=== PATIENT | female | born 1940 | race Caucasian/White ===

== ENCOUNTER → 2016-09-05 | Outpatient (CLI) | payer MEDICARE, BC ==
[~2016-09-05] MED LIST: ASPI81TA11 PO; BUPR300T PO; CEPH-460 PO; DIOV80TA4 PO; GLUCTAB PO; LORTA5 PO; LOSA100T PO; METF500T PO; MULTTAB24 PO; POLY10O OD; TRAZ100T6 PO; VICT18IN; WELLTAB39 PO
[2016-09-05 12:55] LABS: BACTERIA, URINE RARE /hpf; BLOOD, URINE NEG (NEG); GLUCOSE,URINE NEG (NEG); KETONE, URINE NEG (NEG); NITRITE,URINE NEG (NEG); SQUAMOUS EPITHELIAL CELL URINE <1 /hpf (0-5); URINE COLOR YELLOW (YELLW/STRAW)
[2016-09-05 12:57] LABS: AUTOMATED NEUTROPHIL # 5.2 TH/MM3 (1.8-7.7); BASOPHIL % 0.5 % (0.0-2.0); EOSINOPHIL # 0.2 TH/MM3 (0-0.4); EOSINOPHIL % 3.2 % (0.0-4.0); HEMATOCRIT 35.7 % (35.0-46.0); HEMO FLAGS DIFF FINAL; LYMPH % 19.1 % (9.0-44.0); LYMPHOCYTE # 1.4 TH/MM3 (1.0-4.8); MEAN CELL VOLUME 84.8 FL (80.0-100.0); MEAN CORPUSCULAR HEMOGLOBIN 28.2 PG (27.0-34.0); MEAN CORPUSCULAR HGB CONC 33.2 % (32.0-36.0); MONO % 5.8 % (0.0-8.0); NEUT % 71.4 % (16.0-70.0); PLATELET COUNT 260 TH/MM3 (150-450); RED BLOOD COUNT 4.21 MIL/MM3 (4.00-5.30); RED CELL DISTRIBUTION WIDTH 14.2 % (11.6-17.2); WHITE BLOOD COUNT 7.2 TH/MM3 (4.0-11.0)
[2016-09-05 13:14] LABS: MICRO ALBUMIN RANDOM URINE RAW 21.8 MG/L (0.0-30.0)
[2016-09-05 13:16] LABS: HEMOGLOBIN A1a 1.5 %; HEMOGLOBIN A1b 1.5 %; HEMOGLOBIN Ao 85.6 %; HEMOGLOBIN LA1C 1.9 %; HEMOGLOBIN P3 5.4 %
[2016-09-05 13:37] LABS: ANION GAP 4 MEQ/L (5-15); AST (GOT) 15 U/L (15-37); BICARBONATE 30.3 MEQ/L (21.0-32.0); BLOOD UREA NITROGEN 15 MG/DL (7-18); CHLORIDE 102 MEQ/L (98-107); GLOMERULAR FILTRATION RATE 50 ML/MIN (>89); GLUCOSE,FASTING 83 MG/DL (74-99); POTASSIUM 4.5 MEQ/L (3.5-5.1); SODIUM (NA) 136 MEQ/L (136-145)
[2016-09-05 13:45] LABS: ALKALINE PHOSPHATASE 68 U/L (45-117); ALT (GPT) 14 U/L (10-53); FREE T4 1.08 NG/DL (0.76-1.46); HDL CHOLESTEROL 77.8 MG/DL (40.0-60.0); LDL CHOLESTEROL 91 MG/DL (0-99); TOTAL BILIRUBIN ADULT 0.5 MG/DL (0.2-1.0)
== END ==
LOC: PLAB 10:37
PROVIDERS: ATTEND Internal Medicine
DX: E78.00 Pure hypercholesterolemia, unspecified (principal); E03.9 Hypothyroidism, unspecified; R53.83 Other fatigue; E11.8 Type 2 diabetes mellitus with unspecified complications
CPT/HCPCS: 36415; 80053; 80061; 81001; 82043; 83036; 84439; 84443; 85025

== ENCOUNTER → 2016-11-23 | Outpatient (CLI) | payer MEDICARE, BC ==
[2016-11-23 14:36] LABS: INTERNATIONAL NORMALIZED RATIO 0.9 RATIO; PROTHROMBIN TIME - PATIENT 10.3 SEC (9.8-11.6)
[2016-11-23 16:41] LABS: AUTOMATED NEUTROPHIL # 5.8 TH/MM3 (1.8-7.7); BASOPHIL # 0.1 TH/MM3 (0-0.2); BASOPHIL % 0.8 % (0.0-2.0); EOSINOPHIL # 0.2 TH/MM3 (0-0.4); EOSINOPHIL % 2.3 % (0.0-4.0); HEMATOCRIT 35.5 % (35.0-46.0); HEMO FLAGS DIFF FINAL; LYMPH % 14.2 % (9.0-44.0); LYMPHOCYTE # 1.1 TH/MM3 (1.0-4.8); MEAN CELL VOLUME 84.8 FL (80.0-100.0); MEAN CORPUSCULAR HEMOGLOBIN 28.5 PG (27.0-34.0); MEAN CORPUSCULAR HGB CONC 33.6 % (32.0-36.0); MONO % 8.3 % (0.0-8.0); NEUT % 74.4 % (16.0-70.0); PLATELET COUNT 280 TH/MM3 (150-450); RED BLOOD COUNT 4.19 MIL/MM3 (4.00-5.30); RED CELL DISTRIBUTION WIDTH 14.5 % (11.6-17.2); WHITE BLOOD COUNT 7.8 TH/MM3 (4.0-11.0)
[2016-11-23 16:45] LABS: BICARBONATE 27.6 MEQ/L (21.0-32.0); POTASSIUM 4.4 MEQ/L (3.5-5.1)
== END ==
LOC: PLAB 12:20
PROVIDERS: ATTEND Internal Medicine
DX: Z01.818 Encounter for other preprocedural examination (principal)
CPT/HCPCS: 36415; 80048; 85025; 85610; 85730

== ENCOUNTER 2017-01-22 19:38 | Emergency (ER) | payer MEDICARE, BC ==
[~2017-01-22] VITALS: Ht 157.5 cm; Wt 88.2 kg
[~2017-01-22 19:38] MED LIST changes: -ASPI81TA11 PO; -CEPH-460 PO; -LOSA100T PO; -METF500T PO; -MULTTAB24 PO; -TRAZ100T6 PO; -WELLTAB39 PO
[2017-01-22 19:43] VITALS: BP 147/72; PULSE 89; RESP 20; TEMP 98.3; O2SAT 98
[2017-01-22] MEDS ORDERED: ASPI81TA11 PO (20:05)
[2017-01-22] MEDS ORDERED: METF500T PO (20:05)
[2017-01-22] MEDS ORDERED: WELLTAB39 PO (20:05)
[2017-01-22] MEDS ORDERED: LOSA100T PO (20:05)
[2017-01-22] MEDS ORDERED: TRAZ100T6 PO (20:05)
[2017-01-22] MEDS ORDERED: MULTTAB24 PO (20:05)
--- NOTE | 2017-01-22 20:36 | PD ---
HPI Chief Complaint: Edema Time Seen by Provider: 20:15 Travel History International Travel<30 days: No Contact w/Intl Traveler<30days: No Traveled to known affect area: No History of Present Illness HPI 77 year-old female presents to the emergency room for evaluation of right lower leg swelling that has been worsening over the past 3 days. Patient states she was sitting on her porch 3 days ago when she felt a sharp stinging in her right foot. She cannot localize where the stinging came from but states the following morning she woke up with right lower extremity edema. Since then it has been increasing. Patient reports constant, throbbing discomfort. She has been taking her prescribed Percocet without significant relief in symptoms. She denies paresthesias. Denies trauma or injury. Patient takes aspirin daily. She recently had left shoulder surgery 1 month ago. Patient denies chest pain, shortness of breath, or calf pain. PFSH Past Medical History Hx Anticoagulant Therapy: Yes (asa 81mg) Arthritis: Yes Depression: Yes Cancer: No Cardiovascular Problems: Yes (htn on meds) Coronary Artery Disease: Yes Diabetes: Yes Patient Takes Glucophage: No Diminished Hearing: No Endocrine: Yes Gastrointestinal Disorders: Yes (HX ULCERS) Genitourinary: No Hepatitis: No Hiatal Hernia: No Hypertension: Yes Immune Disorder: No Musculoskeletal: Yes (ARTHRITIS) Neurologic: No Psychiatric: No Reproductive: No Respiratory: No Immunizations Current: Yes Tetanus Vaccination: < 5 Years Influenza Vaccination: Yes ?: Not Menopausal: Yes Past Surgical History Abdominal Surgery: Yes (APPEND; GASTRIC BY-PASS- REVERSAL BY-PASS) Appendectomy: Yes Cholecystectomy: Yes Gynecologic Surgery: Yes (HYSTERECTOMY) Hysterectomy: Yes Joint Replacement: Yes (LI KNEE RT ELBOW LT SHOULDER RT HIP) Oral Surgery: Yes (T&A) Tonsillectomy: Yes Other Surgery: Yes (LIGAMENT REPAIR ON RIGHT LEG) Social History Alcohol Use: No Tobacco Use: No Substance Use: No Allergies-Medications (Allergen,Severity, Reaction): Coded Allergies: Sulfa (Verified Allergy, Severe, Swelling, 01/22/17) EYES SWELL UP Reported Meds & Prescriptions Reported Meds & Active Scripts Active Reported Metformin (Metformin HCl) 500 Mg Tab 500 Mg PO DAILY With a meal Multi For Her (Multiple Vitamins W/ Minerals) 1 Tab Tab 1 Tab PO DAILY Trazodone (Trazodone HCl) 100 Mg Tablet 100 Mg PO HS Aspirin EC (Aspirin) 81 Mg Tabdr 81 Mg PO DAILY Losartan (Losartan Potassium) 100 Mg Tab 100 Mg PO DAILY Wellbutrin Xl 24 HR (Bupropion HCl) 300 Mg Tab 300 Mg PO DAILY Review of Systems Except as stated in HPI: all other systems reviewed are Neg Physical Exam Narrative GENERAL: Well-nourished, well-developed female in no acute distress. Afebrile. Ambulatory. SKIN: Focused skin assessment warm/dry. No erythema or ecchymosis. HEAD: Normocephalic. EYES: No scleral icterus. No injection or drainage. NECK: Supple, trachea midline. No JVD or lymphadenopathy. CARDIOVASCULAR: Regular rate and rhythm without murmurs, gallops, or rubs. RESPIRATORY: Breath sounds equal bilaterally. No accessory muscle use. EXTREMITY: Right lower extremity mildly tender to palpation. 2+ pitting edema on the right. Full range of motion in all joints. 1+ dorsalis pedis pulse in the right leg. Bilateral calves are 42 cm. Mildly increased warmth the right lower extremity. Data Data Last Documented VS Vital Signs Date Time Temp Pulse Resp B/P Pulse Ox O2 Delivery O2 Flow Rate FiO2 01/22/17 19:58 01/22/17 19:43 98.3 89 20 98 Room Air Orders Us Leg Venous Doppler (01/22/17 ) MDM Medical Decision Making Medical Screen Exam Complete: Yes Emergency Medical Condition: Yes Medical Record Reviewed: Yes Differential Diagnosis DVT, insect bite reaction, cellulitis Narrative Course 77 her old female presents to the emergency room for evaluation of right lower extremity edema the past 3 days. Patient thinks she may have gotten bit by a bug prior to onset of symptoms but cannot localize bug bite. There is constant , throbbing discomfort in the right lower extremity. Physical exam reveals right lower extremity is neurovascularly intact with 1+ dorsalis pedis pulse. 2 + pitting edema in the right. Mildly increased warmth. No erythema or ecchymosis. There is no obvious skin wound or insect bite. Given patient's recent major surgery and immobilization of 5 days, there is concern for DVT. Ultrasound shows no evidence of DVT. I spoke to my attending physician, Dr. Brown, who recommends discharging on Keflex with repeat ultrasound in 10 days if symptoms persist. Patient was instructed to follow-up with her primary care physician or return sooner for worsening symptoms. She understands and agrees to plan. Diagnosis Primary Impression: Edema of right lower extremity Referrals: Primary Care Physician Patient Instructions: General Instructions, Leg Edema (ED) Additional Instructions: Rest and drink plenty of fluids. Take Keflex as directed, until gone. Follow up with a primary care physician. Return to emergency room for worsening symptoms, as discussed. Med/Other Pt SpecificInfo: Prescription(s) given Disposition: 01 DISCHARGE HOME Condition: Stable Jolly Morales Jan 22, 2017 20:36
--- NOTE | 2017-01-22 21:09 | RADRPT ---
EXAM DATE/TIME: 01/22/2017 20:50 [facility] COMPARISON: No previous studies available for comparison. INDICATIONS : Right foot and ankle swelling after a bug bite. MEDICAL HISTORY : Hypertension. SURGICAL HISTORY : Cholecystectomy. Left shoulder surgery. Bilateral knee replacement. Right hip surgery. ENCOUNTER: Initial ACUITY: 3 days PAIN SCORE: 6/10 LOCATION: Right leg. TECHNIQUE: Venous ultrasound of the leg was performed from the inguinal ligament to the proximal calf. Real-shantelle e, color Doppler and spectral tracing, compression and augmentation techniques were used. FINDINGS: There is normal compressibility of the deep venous system from the inguinal region to the proximal ca lf. No echogenic clot is seen in the lumen of the common femoral, femoral, popliteal, and posterior tibial veins. There is a normal response of the venous system to proximal and distal augmentation an d respiration. CONCLUSION: No evidence of deep venous thrombosis within the right lower extremity. Chance Whyte MD on January 22, 2017 at 21:07 Board Certified Radiologist. This report was verified electronically.
[2017-01-22] MEDS ORDERED: CEPH-460 PO (21:21)
--- NOTE | 2017-01-22 21:22 | PD ---
Data Data Last Documented VS Vital Signs Date Time Temp Pulse Resp B/P Pulse Ox O2 Delivery O2 Flow Rate FiO2 01/22/17 19:58 01/22/17 19:43 98.3 89 20 98 Room Air Orders Us Leg Venous Doppler (01/22/17 ) MDM Supervised Visit with BARRY: Yes Narrative Course The history, exam, and medical decision-making in the associated midlevel provider note were completed with my assistance. I reviewed and agree with the findings presented. I attest that I had a [id number] encounter with the patient on the same day, and personally performed and documented my assessment and findings in the medical record. *My assessment and Findings: This is a 77-year-old female who presents to the emergency department with right lower extremity swelling. She has pitting edema of the right lower extremity with more in her foot than in her and she has some warmth and erythema of the foot. I suspect she has a local cellulitis or irritant reaction to a bug bite. Ultrasound was negative for DVT. Given the extent of her swelling I did advise her to have a repeat ultrasound performed in 10 days and to follow-up with her primary care physician later this week. She'll be discharged on antibiotics. Diagnosis Primary Impression: Edema of right lower extremity Referrals: Primary Care Physician Patient Instructions: General Instructions, Leg Edema (ED) Additional Instruction: Rest and drink plenty of fluids. Take Keflex as directed, until gone. Follow up with a primary care physician. Return to emergency room for worsening symptoms, as discussed. Disposition: 01 DISCHARGE HOME Condition: Stable Aga Brown MD Jan 22, 2017 21:22
== END 2017-01-22 21:25 | disposition home or self-care (01) ==
LOC: PHEFT 19:38
DX: R60.0 Localized edema (principal); M19.90 Unspecified osteoarthritis, unspecified site; I10 Essential (primary) hypertension; E11.9 Type 2 diabetes mellitus without complications; I25.10 Atherosclerotic heart disease of native coronary artery without angina pectoris; Z79.82 Long term (current) use of aspirin
CPT/HCPCS: 93971

== ENCOUNTER → 2017-02-01 | Outpatient (CLI) | payer MEDICARE, BC ==
[~2017-02-01] MED LIST changes: +ASPI81TA11 PO; -BUPR300T PO; +CEPH-460 PO; -DIOV80TA4 PO; -GLUCTAB PO; -LORTA5 PO; +LOSA100T PO; +METF500T PO; +MULTTAB24 PO; -POLY10O OD; +TRAZ100T6 PO; -VICT18IN; +WELLTAB39 PO
[2017-02-01 13:01] LABS: BASOPHIL # 0.1 TH/MM3 (0-0.2); BASOPHIL % 0.8 % (0.0-2.0); EOSINOPHIL # 0.3 TH/MM3 (0-0.4); HEMATOCRIT 31.2 % (35.0-46.0); HEMO FLAGS DIFF FINAL; LYMPH % 26.7 % (9.0-44.0); LYMPHOCYTE # 1.8 TH/MM3 (1.0-4.8); MEAN CELL VOLUME 81.2 FL (80.0-100.0); MEAN CORPUSCULAR HEMOGLOBIN 25.5 PG (27.0-34.0); MEAN CORPUSCULAR HGB CONC 31.5 % (32.0-36.0); MONO % 8.1 % (0.0-8.0); NEUT % 60.4 % (16.0-70.0); PLATELET COUNT 296 TH/MM3 (150-450); RED BLOOD COUNT 3.85 MIL/MM3 (4.00-5.30); RED CELL DISTRIBUTION WIDTH 15.4 % (11.6-17.2); WHITE BLOOD COUNT 6.6 TH/MM3 (4.0-11.0)
[2017-02-01 13:05] LABS: BACTERIA, URINE RARE /hpf; BLOOD, URINE NEG (NEG); GLUCOSE,URINE NEG (NEG); HYALINE CAST, URINE 1 /lpf (RARE); KETONE, URINE NEG (NEG); MUCUS URINE FEW /lpf (OCC); NITRITE,URINE NEG (NEG); PH, URINE 5.5 (5.0-8.5); SQUAMOUS EPITHELIAL CELL URINE 4 /hpf (0-5); URINE COLOR YELLOW (YELLW/STRAW)
[2017-02-01 13:21] LABS: ALT (GPT) 15 U/L (10-53); ANION GAP 7 MEQ/L (5-15); AST (GOT) 20 U/L (15-37); BICARBONATE 26.6 MEQ/L (21.0-32.0); BLOOD UREA NITROGEN 13 MG/DL (7-18); CHLORIDE 107 MEQ/L (98-107); GLOMERULAR FILTRATION RATE 57 ML/MIN (>89); GLUCOSE,FASTING 89 MG/DL (74-99); POTASSIUM 3.7 MEQ/L (3.5-5.1); SODIUM (NA) 141 MEQ/L (136-145); URIC ACID 4.9 MG/DL (2.6-6.0)
[2017-02-01 13:46] LABS: ALKALINE PHOSPHATASE 88 U/L (45-117); FREE T4 1.37 NG/DL (0.76-1.46); HDL CHOLESTEROL 81.5 MG/DL (40.0-60.0); LDL CHOLESTEROL 79 MG/DL (0-99); TOTAL BILIRUBIN ADULT 0.5 MG/DL (0.2-1.0)
[2017-02-01 14:48] LABS: MICRO ALBUMIN RANDOM URINE RAW 74.5 MG/L (0.0-30.0)
[2017-02-01 17:17] LABS: HEMOGLOBIN A1a 2.1 %; HEMOGLOBIN A1b 1.3 %; HEMOGLOBIN Ao 85.5 %; HEMOGLOBIN LA1C 1.9 %; HEMOGLOBIN P3 3.8 %
== END ==
LOC: PLAB 10:26
PROVIDERS: ATTEND Internal Medicine
DX: R19.7 Diarrhea, unspecified (principal); R53.83 Other fatigue; R60.0 Localized edema; E78.00 Pure hypercholesterolemia, unspecified; E03.9 Hypothyroidism, unspecified; E11.9 Type 2 diabetes mellitus without complications
CPT/HCPCS: 36415; 80053; 80061; 81001; 82043; 82607; 83036; 84439; 84443; 84550; 85025

== ENCOUNTER → 2017-02-22 | Outpatient (CLI) | payer MEDICARE, BC ==
[2017-02-22 14:09] LABS: AUTOMATED NEUTROPHIL # 5.6 TH/MM3 (1.8-7.7); BASOPHIL # 0.1 TH/MM3 (0-0.2); BASOPHIL % 0.9 % (0.0-2.0); EOSINOPHIL # 0.1 TH/MM3 (0-0.4); EOSINOPHIL % 1.6 % (0.0-4.0); HEMATOCRIT 34.3 % (35.0-46.0); HEMO FLAGS DIFF FINAL; LYMPH % 20.6 % (9.0-44.0); LYMPHOCYTE # 1.6 TH/MM3 (1.0-4.8); MEAN CELL VOLUME 81.2 FL (80.0-100.0); MEAN CORPUSCULAR HEMOGLOBIN 26.3 PG (27.0-34.0); MEAN CORPUSCULAR HGB CONC 32.4 % (32.0-36.0); MONO % 5.5 % (0.0-8.0); NEUT % 71.4 % (16.0-70.0); PLATELET COUNT 291 TH/MM3 (150-450); RED BLOOD COUNT 4.22 MIL/MM3 (4.00-5.30); RED CELL DISTRIBUTION WIDTH 15.8 % (11.6-17.2); WHITE BLOOD COUNT 7.9 TH/MM3 (4.0-11.0)
[2017-02-22 14:28] LABS: TRANSFERRIN IRON PROFILE 253 MG/DL (200-360)
[2017-02-22 14:52] LABS: FERRITIN 30 NG/ML (8-252)
== END ==
LOC: PLAB 12:03
PROVIDERS: ATTEND Internal Medicine Gastroenterology
DX: D51.0 Vitamin B12 deficiency anemia due to intrinsic factor deficiency (principal); A04.7 Enterocolitis due to Clostridium difficile
CPT/HCPCS: 36415; 82607; 82728; 82746; 83540; 83550; 85025

== ENCOUNTER → 2017-08-28 | Outpatient (CLI) | payer MEDICARE, BC ==
[~2017-08-28] MED LIST changes: -ASPI81TA11 PO; +ASPI81TA23 PO; +TRAZ100T10 PO; -TRAZ100T6 PO
[2017-08-28 17:27] LABS: HEMATOCRIT 36.7 % (35.0-46.0); HEMOGLOBIN 12.2 GM/DL (11.6-15.3); MEAN CELL VOLUME 82.9 FL (80.0-100.0); MEAN CORPUSCULAR HEMOGLOBIN 27.5 PG (27.0-34.0); MEAN CORPUSCULAR HGB CONC 33.2 % (32.0-36.0); MEAN PLATELET VOLUME 8.3 FL (7.0-11.0); PLATELET COUNT 276 TH/MM3 (150-450); RED BLOOD COUNT 4.43 MIL/MM3 (4.00-5.30); WHITE BLOOD COUNT 8.2 TH/MM3 (4.0-11.0)
[2017-08-28 17:33] LABS: BILIRUBIN, URINE NEG (NEG); BLOOD, URINE NEG (NEG); GLUCOSE,URINE NEG (NEG); HYALINE CAST, URINE 4 /lpf (RARE); KETONE, URINE NEG (NEG); MUCUS URINE FEW /lpf (OCC); NITRITE,URINE NEG (NEG); SQUAMOUS EPITHELIAL CELL URINE <1 /hpf (0-5); URINE COLOR YELLOW (YELLW/STRAW); URINE LEUKOCYTE ESTERASE NEG (NEG)
[2017-08-28 17:35] LABS: ALBUMIN 3.8 GM/DL (3.4-5.0); ALT (GPT) 17 U/L (10-53); AST (GOT) 15 U/L (15-37); BICARBONATE 26.6 MEQ/L (21.0-32.0); BLOOD UREA NITROGEN 25 MG/DL (7-18); CALCIUM 8.6 MG/DL (8.5-10.1); CHLORIDE 104 MEQ/L (98-107); CHOLESTEROL 206 MG/DL (120-200); CREATININE 1.34 MG/DL (0.50-1.00); GLOMERULAR FILTRATION RATE 38 ML/MIN (>89); GLUCOSE,FASTING 73 MG/DL (74-99); SODIUM (NA) 136 MEQ/L (136-145)
[2017-08-28 17:44] LABS: ALKALINE PHOSPHATASE 81 U/L (45-117); CHOLESTEROL/ HDL RATIO 2.41 RATIO; FREE T4 1.13 NG/DL (0.76-1.46); HDL CHOLESTEROL 85.2 MG/DL (40.0-60.0); LDL CHOLESTEROL 105 MG/DL (0-99); TOTAL BILIRUBIN ADULT 0.6 MG/DL (0.2-1.0); TOTAL PROTEIN 7.2 GM/DL (6.4-8.2); TRIGLYCERIDES 78 MG/DL (42-150)
[2017-08-28 22:17] LABS: HEMOGLOBIN A1C 5.4 % (4.3-6.0)
== END ==
LOC: PLAB 13:18
PROVIDERS: ATTEND Internal Medicine
DX: E78.00 Pure hypercholesterolemia, unspecified (principal); E03.9 Hypothyroidism, unspecified; E11.9 Type 2 diabetes mellitus without complications; D64.9 Anemia, unspecified; D51.0 Vitamin B12 deficiency anemia due to intrinsic factor deficiency
CPT/HCPCS: 36415; 80053; 80061; 81001; 83036; 84439; 84443; 85027

== ENCOUNTER → 2017-12-04 | Outpatient (CLI) | payer MEDICARE, BC ==
[2017-12-04 13:34] LABS: AUTOMATED NEUTROPHIL # 4.7 TH/MM3 (1.8-7.7); BASOPHIL # 0.1 TH/MM3 (0-0.2); BASOPHIL % 0.8 % (0.0-2.0); EOSINOPHIL # 0.2 TH/MM3 (0-0.4); EOSINOPHIL % 2.2 % (0.0-4.0); HEMATOCRIT 32.2 % (35.0-46.0); HEMO FLAGS DIFF FINAL; HEMOGLOBIN 10.8 GM/DL (11.6-15.3); LYMPH % 21.6 % (9.0-44.0); LYMPHOCYTE # 1.5 TH/MM3 (1.0-4.8); MEAN CELL VOLUME 84.3 FL (80.0-100.0); MEAN CORPUSCULAR HEMOGLOBIN 28.3 PG (27.0-34.0); MEAN CORPUSCULAR HGB CONC 33.6 % (32.0-36.0); MEAN PLATELET VOLUME 7.8 FL (7.0-11.0); MONO % 7.4 % (0.0-8.0); MONOCYTE # 0.5 TH/MM3 (0-0.9); PLATELET COUNT 304 TH/MM3 (150-450); RED BLOOD COUNT 3.82 MIL/MM3 (4.00-5.30); RED CELL DISTRIBUTION WIDTH 14.3 % (11.6-17.2); WHITE BLOOD COUNT 6.9 TH/MM3 (4.0-11.0)
[2017-12-04 13:44] LABS: BILIRUBIN, URINE NEG (NEG); BLOOD, URINE NEG (NEG); GLUCOSE,URINE NEG (NEG); KETONE, URINE NEG (NEG); MUCUS URINE FEW /lpf (OCC); NITRITE,URINE NEG (NEG); SQUAMOUS EPITHELIAL CELL URINE <1 /hpf (0-5); URINE COLOR LIGHT-YELLOW (YELLW/STRAW); URINE LEUKOCYTE ESTERASE NEG (NEG)
[2017-12-04 13:45] LABS: PHOSPHORUS 3.4 MG/DL (2.5-4.9)
[2017-12-04 13:45] LABS: ALBUMIN 3.5 GM/DL (3.4-5.0); ANION GAP 10 MEQ/L (5-15); AST (GOT) 18 U/L (15-37); BICARBONATE 25.5 MEQ/L (21.0-32.0); BLOOD UREA NITROGEN 20 MG/DL (7-18); CALCIUM 8.5 MG/DL (8.5-10.1); CHLORIDE 96 MEQ/L (98-107); GLOMERULAR FILTRATION RATE 48 ML/MIN (>89); GLUCOSE,FASTING 74 MG/DL (74-99); IMMUNOGLOBULIN A 184 MG/DL (90-497); IMMUNOGLOBULIN G 893 MG/DL (650-1610); KAPPA LAMBDA RATIO 2.03 (1.57-3.93); KAPPA LIGHT CHAIN 223 MG/DL (170-370); LAMBDA LIGHT CHAIN 110 MG/DL (90-210); POTASSIUM 4.1 MEQ/L (3.5-5.1); SODIUM (NA) 131 MEQ/L (136-145)
[2017-12-04 13:46] LABS: CHOLESTEROL 174 MG/DL (120-200); TRIGLYCERIDES 53 MG/DL (42-150)
[2017-12-04 13:49] LABS: COMPLEMENT C3 89 MG/DL (90-180)
[2017-12-04 13:49] LABS: COMPLEMENT C4 34 MG/DL (10-40)
[2017-12-04 13:55] LABS: IMMUNOGLOBULIN M 42 MG/DL (42-255); TOTAL PROTEIN SPE 6.7 GM/DL (6.0-7.6); URINE TOTAL PROTEIN TIMED 13.4 MG/DL
[2017-12-04 13:56] LABS: ALKALINE PHOSPHATASE 77 U/L (45-117); ALT (GPT) 20 U/L (10-53); CHOLESTEROL/ HDL RATIO 1.94 RATIO; FREE T4 1.19 NG/DL (0.76-1.46); HDL CHOLESTEROL 89.4 MG/DL (40.0-60.0); LDL CHOLESTEROL 74 MG/DL (0-99); TOTAL BILIRUBIN ADULT 0.4 MG/DL (0.2-1.0); TOTAL PROTEIN 6.6 GM/DL (6.4-8.2)
[2017-12-04 13:56] LABS: PARATHYROID HORMONE INTACT 69.6 PG/ML (12.4-76.8)
[2017-12-04 14:38] LABS: URINE FOR EOSINOPHILS NONE SEEN /HPF (NONE SEEN)
[2017-12-04 14:40] LABS: HEPATITIS C AB IgG NONREACTIVE (NONREACTIVE)
[2017-12-04 21:42] LABS: HEMOGLOBIN A1C 5.1 % (4.3-6.0); HEMOGLOBIN A1a 1.8 %; HEMOGLOBIN A1b 1.6 %; HEMOGLOBIN Ao 85.2 %; HEMOGLOBIN LA1C 1.9 %; HEMOGLOBIN P3 3.9 %
[2017-12-05 04:32] LABS: TOTAL COMPLEMENT (CH50) 52 U/mL (30 - 75)
[2017-12-05 21:31] LABS: ALB/GLOB RATIO (SPE) 1.62 (1.39-2.23); ALBUMIN SPE 4.15 GM/DL (3.50-5.00); ALPHA 1 GLOBULIN 0.19 GM/DL (0.11-0.29); ALPHA 2 GLOBULIN 0.86 GM/DL (0.22-1.00); BETA GLOBULINS (SPE) 0.66 GM/DL (0.53-1.03); GAMMA GLOBULINS 0.85 GM/DL (0.50-1.39)
[2017-12-06 23:52] LABS: KAPPA/LAMBDA FREE 1.52 (0.26-1.65)
== END ==
LOC: PLAB 09:14
DX: I10 Essential (primary) hypertension (principal); E03.9 Hypothyroidism, unspecified; E78.00 Pure hypercholesterolemia, unspecified; D51.0 Vitamin B12 deficiency anemia due to intrinsic factor deficiency; E11.9 Type 2 diabetes mellitus without complications; N17.9 Acute kidney failure, unspecified
CPT/HCPCS: 80053; 80061; 81001; 82570; 82784; 83036; 83883; 83883-59; 83970; 84100; 84156; 84165; 84439; 84443; 85025; 86160; 86162; 86334; 86335; 86803; 87205